=== PATIENT | male | born 1980 | race Caucasian/White ===

== ENCOUNTER 2022-01-17 10:24 | Emergency (ER) | payer OTHER ==
[~2022-01-17] VITALS: Ht 172.7 cm; Wt 73.6 kg
[2022-01-17 10:25] VITALS: BP 133/98
== END 2022-01-17 12:39 | disposition home or self-care (01) ==
LOC: M ED 10:24
DX: J02.9 Acute pharyngitis, unspecified (principal); B34.8 Other viral infections of unspecified site; Z88.0 Allergy status to penicillin

== ENCOUNTER → 2022-04-09 | Outpatient (CLI) | payer OTHER | LOC: M RAD 08:57 | PROVIDERS: ATTEND Physician Assistant | DX: S29.012A Strain of muscle and tendon of back wall of thorax, initial encounter (principal); X58.XXXA Exposure to other specified factors, initial encounter; Y92.9 Unspecified place or not applicable; Y93.9 Activity, unspecified; Y99.9 Unspecified external cause status ==

== ENCOUNTER → 2023-03-13 | Outpatient (CLI) | payer OTHER | LOC: M RAD 13:09 | PROVIDERS: ATTEND Physician Assistant Medical | DX: M54.9 Dorsalgia, unspecified (principal) ==

== ENCOUNTER → 2023-12-13 | Outpatient (CLI) | payer OTHER | LOC: M WUC 12:50 | PROVIDERS: ATTEND Physician Assistant | DX: S60.012A Contusion of left thumb without damage to nail, initial encounter (principal) ==

== ENCOUNTER → 2024-07-01 | Outpatient (CLI) | payer OTHER | LOC: M WUC 12:56 | PROVIDERS: ATTEND Nurse Practitioner Family | DX: M54.50 Low back pain, unspecified (principal); W01.10XA Fall on same level from slipping, tripping and stumbling with subsequent striking against unspecified object, initial encounter ==

== ENCOUNTER 2025-04-23 11:39 | Day surgery (SDC) | payer OTHER ==
[~2025-04-23] VITALS: Ht 170.2 cm; Wt 70.3 kg
[~2025-04-23 11:39] MED LIST: LIDOCAINE 2% 100 MG/5 ML SDV (FOR ANES.) As Ordered ONE; OMEP10CASR PO; TRAM50TA2 PO
[2025-04-23 13:37] VITALS: TEMP 97.3
[2025-04-23 13:54] VITALS: BP 125/62; O2SAT 99
== END 2025-04-23 14:02 | disposition home or self-care (01) ==
LOC: M OPP 11:39
PROVIDERS: ATTEND Internal Medicine Gastroenterology
DX: K62.1 Rectal polyp (principal); R10.30 Lower abdominal pain, unspecified; R19.7 Diarrhea, unspecified; K62.5 Hemorrhage of anus and rectum; K44.9 Diaphragmatic hernia without obstruction or gangrene; R10.13 Epigastric pain; Z88.1 Allergy status to other antibiotic agents; Z79.891 Long term (current) use of opiate analgesic; Z79.899 Other long term (current) drug therapy
CPT/HCPCS: 43239; 45380; 45385; 88305; J3010